=== PATIENT | female | born 2005 | race Caucasian/White ===

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

== ENCOUNTER → 2023-04-12 | Outpatient (CLI) | payer OTHER ==
[~2023-04-12] MED LIST changes: +CEFP200 PO; +IBUP800 PO; +TRAM50 PO
== END | disposition home or self-care (01) ==
LOC: LAB 12:20 → LAB SHORT 12:20
DX: J02.9 Acute pharyngitis, unspecified (principal)
CPT/HCPCS: 87081